=== PATIENT | male | born 1965 | race Two or more races ===

== ENCOUNTER 2025-07-17 13:53 | Emergency (ER) | payer MEDICARE, MEDICAID ==
[~2025-07-17] VITALS: Ht 175.3 cm; Wt 114.4 kg
--- NOTE | 2025-07-17 14:42 | ED.PDOC ---
History of Present Illness HPI Comments 59 y/o obese M presents with c/c of posterior head and right elbow pain s/p mechanical fall and injury. Patient endorses on slipping on a puddle of water and falling backwards and hitting both the back of his head and right elbow at 0300, this morning. No prior symptoms or lost of consciousness or history of pertinent previous injuries reported. He denies any vision or speech changes, dizziness, weakness, additional injuries, or further acute symptoms at this time. Significant history of CAD, DMII, HTN, 4xCABG, strokes, and brain surgery s/p brain tumor. Chief Complaint: Head Injury Time Seen by MD: 14:15 Primary Care Provider: JAIMIE Ruano Notes: Nurses Notes, Medications, Allergies Allergies: Coded Allergies: NO KNOWN ALLERGIES (Unverified , 07/02/14) Information Source: Patient Mode of Arrival: Ambulatory Severity: Moderate Timing: Hours Duration: Since onset Prehospital treatment: None Past Medical History PAST MEDICAL HISTORY: CAD, DM (type II), HTN Past Medical History (Other): Previous history of strokes History of brain tumors Surgical History: CABG (4x), Cholecystectomy Surgical History (Other): brain surgery Family History Family History: Family hx of DM Social History Smoker: Non-Smoker Alcohol: Denies ETOH Use Drugs: Denies Drug Use Lives In: Home Constitutional: denies: chills, diaphoresis, fatigue, fever, malaise, sweats, weakness, others EENTM: denies: blurred vision, double vision, ear bleeding, ear discharge, ear drainage, ear pain, ear ringing, eye pain, eye redness, hearing loss, mouth pain, mouth swelling, nasal discharge, nose bleeding, nose congestion, nose pain, photophobia, tearing, throat pain, throat swelling, voice changes, others Respiratory: denies: cough, hemoptysis, orthopnea, SOB at rest, shortness of breath, SOB with excertion, stridor, wheezing, others Cardiovascular: denies: chest pain, dizzy spells, diaphoresis, Dyspnea on exertion, edema, irregular heart beat, left arm pain, lightheadedness, palpitations, PND, syncope, others Gastrointestinal: denies: abdomen distended, abdominal pain, blood streaked bowels, constipated, diarrhea, dysphagia, difficulty swallowing, hematemesis, melena, nausea, poor appetite, poor fluid intake, rectal bleeding, rectal pain, vomiting, others Genitourinary: denies: burning, dysuria, flank pain, frequency, hematuria, incontinence, penile discharge, penile sore, pain, testicle pain, testicle swelling, urgency, others Neurological: reports: headache; denies: dizziness, fainting, left sided numbness, left sided weakness, numbness, paresthesia, pre-existing deficit, right sided numbness, right sided weakness, seizure, speech problems, tingling, tremors, weakness, others Musculoskeletal: reports: others (right elbow pain ); denies: back pain, gout, joint pain, joint swelling, muscle pain, muscle stiffness, neck pain Integumetry: denies: bruises, change in color, change in hair/nails, dryness, laceration, lesions, lumps, rash, wounds, others Allergic/Immunocompromised: denies: Difficulty Healing, Frequent Infections, Hives, Itching, others Hematologic/Lymphatic: denies: anemia, blood clots, easy bleeding, easy bruising, swollen glands, others Endocrine: denies: excessive hunger, excessive sweating, excessive thirst, excessive urination, flushing, intolerance to cold, intolerance to heat, unexplained weight gain, unexplained weight loss, others Psychiatric: denies: anxiety, bipolar disorder, depression, hopeless, panic disorder, schizophrenia, sleepless, suicidal, others All Other Systems: Reviewed and Negative Physical Exam General Appearance: No Apparent Distress HEENT: Normal ENT Inspection, Pharynx Normal, TMs Normal Neck: Full Range of Motion, Non-Tender, Normal, Normal Inspection Respiratory: Chest Non-Tender, Lungs Clear, No Accessory Muscle Use, No Respiratory Distress, Normal Breath Sounds Cardiovascular: No Edema, No JVD, No Murmur, No Gallop, Normal Peripheral Pulses, Regular Rate/Rhythm Breast Exam: Deferred Gastrointestinal: No Organomegaly, Non Tender, No Pulsatile Mass, Normal Bowel Sounds, Soft Genitalia: Deferred Pelvic: Deferred Rectal: Deferred Extremities: No calf tenderness, Normal capillary refill, No pedal edema Musculoskeletal : Location: Right Extremity Location: Elbow Apperance: Tenderness: Mild Neurologic: Alert, 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 Was a procedure done?: No Differential Dx Considerations may include: closed head injury, intracranial hemorrhaging, fractures, contusions, abrasions, sprain, dislocation, among others X-Ray, Labs, Meds, VS Vital Signs Date Time Temp Pulse Resp B/P (MAP) Pulse Ox O2 Delivery O2 Flow Rate FiO2 07/17/25 13:56 97.8 87 18 157/96 99 97.8 X-ray of the right elbow is negative for any fracture. Cat scan of the head shows: IMPRESSION: 1. No acute territorial infarct, intracranial hemorrhage, or mass effect. 2. Age-related involutional changes. Chronic changes as detailed. 3. Small right posterior scalp hematoma without underlying fracture. 4. If clinical symptoms persist, MRI may be beneficial in further evaluation. The patient is being discharged and will follow up with the primary care doctor The patient will return to the emergency department's condition worsens. Images Reviewed?: Images reviewed and evaluated by me Time of 1ST Reevaluation: 14:45 Reevaluation 1ST: Unchanged Patient Education/Counseling: Diagnosis, Treatment Family Education/Counseling: No Family Present SEPSIS Sepsis Screen Date sepsis recognized/suspect: Jul 17, 2025 Time Sepsis recognized/suspect: 1400 Recent Procedure: No On Antibiotic Therapy: No Respiratory Rate >20: No Heart Rate >90: No Temp<36 C (96.8 F) or >38.3 C: No SBP <90 or MAP <65 mmHG: No New Acute Mental Status Change: No Is the patient on CPAP, BIPAP,: No Physician Orders Head Without Contrast (07/17/25 14:25) R Elbow 2v Xray (07/17/25 14:25) Vital Signs Date Time Temp Pulse Resp B/P (MAP) Pulse Ox O2 Delivery O2 Flow Rate FiO2 07/17/25 13:56 97.8 87 18 157/96 99 97.8 Departure 1 Departure Time of Disposition: 16:27 Impression: Primary Impression: Contusion of right elbow Qualified Codes: S50.01XA - Contusion of right elbow, initial encounter Additional Impressions: History of fall Blunt head trauma Qualified Codes: S09.8XXA - Other specified injuries of head, initial encounter Disposition: HOME / SELF CARE / HOMELESS Condition: Fair Discharged With: Self Critical Care Note Critical Care Time?: No Stability Stability form required: No Heart Score Heart Score: Heart Score Response (Comments) Value History N/A 0 EKG N/A 0 Age N/A 0 Risk Factors N/A 0 Troponin N/A 0 Total 0 I personally scribed for ELIZABETH REGAN MD ([email or web address]) on 07/17/25 at 14:42. Electronically submitted by Naman Gaston ([email or web address]). ELIZABETH REGAN MD Jul 17, 2025 14:42
--- NOTE | 2025-07-17 15:12 | DVH ---
EXAM: XY R ELBOW 2V XRAY HISTORY: fall COMPARISON: None TECHNIQUE: AP and lateral views of the right elbow were performed. FINDINGS: No acute fracture or effusion are identified about the right elbow. No significant joint space narrowing. There is smooth calcification along the lateral margin of the lateral humeral epicondyle. IMPRESSION: 1. No acute fracture of the right elbow. 2. Chronic calcific lateral epicondylosis.
--- NOTE | 2025-07-17 15:19 | DVH ---
CT HEAD WITHOUT CONTRAST INDICATION: fall EXAM DATE: 07/17/2025 02:32 PM COMPARISON: None RADIATION DOSE: CTDIvol: 53.3 mGy, DLP: 971.9 mGy*cm PROCEDURE: CT scans of the head were obtained from the vertex to the skull base. Sagittal and coronal reconstructions were provided. All CT scans at this medical facility are performed using dose modulation techniques as appropriate to a performed exam including the following: Automated exposure control was utilized; adjustment of the MA and/or KV according to patient size; and use of iterative reconstruction technique. FINDINGS: Motion and streak artifact degrades fine detail. No acute territorial infarct, intracranial hemorrhage, or mass effect. There are global involutional changes with compensatory prominence of the ventricles and sulci. Patchy periventricular and subcortical white matter hypoattenuation is nonspecific but may be related to small vessel ischemic disease. Prior right pterional craniotomy. There is tissue loss with gliosis/ encephalomalacia within the right inferior frontal lobe. 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 The paranasal sinuses and mastoid air cells are clear. The osseous structures are otherwise unremarkable. Small right posterior scalp hematoma without underlying fracture. IMPRESSION: 1. No acute territorial infarct, intracranial hemorrhage, or mass effect. 2. Age-related involutional changes. Chronic changes as detailed. 3. Small right posterior scalp hematoma without underlying fracture. 4. If clinical symptoms persist, MRI may be beneficial in further evaluation.
[2025-07-17 17:25] VITALS: BP 140/72; PULSE 84; RESP 18; TEMP 98.2; O2SAT 98
== END 2025-07-17 17:28 | disposition home or self-care (01) ==
LOC: ER 13:53
DX: S50.01XA Contusion of right elbow, initial encounter (principal); S00.03XA Contusion of scalp, initial encounter; I10 Essential (primary) hypertension; E11.9 Type 2 diabetes mellitus without complications; I25.10 Atherosclerotic heart disease of native coronary artery without angina pectoris; Z86.73 Personal history of transient ischemic attack (TIA), and cerebral infarction without residual deficits; Z90.49 Acquired absence of other specified parts of digestive tract; E66.9 Obesity, unspecified; Z95.1 Presence of aortocoronary bypass graft; Z91.81 History of falling; W01.0XXA Fall on same level from slipping, tripping and stumbling without subsequent striking against object, initial encounter; Y93.89 Activity, other specified; Y92.89 Other specified places as the place of occurrence of the external cause; Y99.8 Other external cause status
CPT/HCPCS: 70450; 73070